=== PATIENT | female | born 1955 | race Two or more races ===

== ENCOUNTER → 2025-03-27 | Day surgery (SDC) | payer OTHER, MEDICAID ==
[~2025-03-27] VITALS: Ht 162.6 cm; Wt 77.1 kg
[~2025-03-27] MED LIST: GABA-1308 PO; INSU1INJ19 SC; KETAMINE 50mg/ML 1ml syringe ONE; LIDOCAINE 1% INJ PF 5ML AMP ONE; LISI40TA16 PO; MIDAZOLAM HCL 2MG/2ML 2ml VIAL (1mg/ml) ONE; ONDANSETRON HCL 4 MG/2 ML VIAL ONE; PROPOFOL 10 MG/ML 20 ML IV ONE; SODIUM CHLORIDE LOCK 0 ML ONE; TIRZ12.5 SC; ceFAZolin 2 GM/D5W50ml 50 ML IV ONE; fentaNYL CITRATE 100 MCG/2 ML VL ONE
[2025-03-27 09:40] VITALS: BP 149/88; PULSE 85; RESP 18; TEMP 97; O2SAT 100
== END | disposition home or self-care (01) ==
LOC: SUR 08:38
PROVIDERS: ATTEND Obstetrics & Gynecology
DX: N81.11 Cystocele, midline (principal); Z53.8 Procedure and treatment not carried out for other reasons; N39.46 Mixed incontinence; E11.9 Type 2 diabetes mellitus without complications; Z79.4 Long term (current) use of insulin; Z79.899 Other long term (current) drug therapy; Z98.890 Other specified postprocedural states
CPT/HCPCS: 82962; J0690; J2704; J2250; J2405

== ENCOUNTER 2025-05-22 07:39 | Day surgery (SDC) | payer OTHER, MEDICAID ==
[2025-05-18 14:56] LABS: Basophils # (auto) 0 10 ^3/uL (0-0.2); Eosinophils # (auto) 0.1 10 ^3/uL (0-0.8); Eosinophils % (auto) 3.1 % (0.0-7.0); Hematocrit 32.2 % (36.0-46.0); Lymphocytes # (auto) 1.7 10 ^3/uL (0.4-5.4); Lymphocytes % (auto) 36.8 % (10.0-50.0); Mean Corpuscular Hemoglobin 29.2 pg (28.0-32.0); Mean Corpuscular Hgb Conc. 34.2 g/dL (32.0-36.0); Mean Corpuscular Volume 85.3 fL (80.0-100.0); Monocytes # (auto) 0.4 10 ^3/uL (0-1.3); Monocytes % (auto) 7.7 % (0.0-12.0); Neutrophils # (auto) 2.4 10 ^3/uL (1.6-8.6); Neutrophils % (auto) 51.4 % (37.0-80.0); Nucleated Red Blood Cells % 0.1 %; Platelet Count (auto) 294 10^3/uL (140-450); Red Blood Cells 3.77 10^6/uL (4.0-5.20); Red Cell Distribution Width 15.5 % (11.8-14.3); White Blood Cell 4.7 10^3/uL (4.4-10.8)
[2025-05-18 15:06] LABS: INR 0.97 (0.9-1.15); Partial Thromboplastin Time 25.6 SEC (24.5-34.5); Prothrombin Time 10.3 sec (9.3-11.8)
[2025-05-18 15:11] LABS: Alanine Aminotransferase 13 U/L (7-40); Albumin 4.2 g/dL (3.2-4.8); Alkaline Phosphatase 97 U/L (46-116); Anion Gap 4 (5-15); Aspartate Aminotransferase 20 U/L (<34); BUN/Creatinine Ratio 18.1 (10.0-20.0); Bilirubin, Total 0.6 mg/dL (0.2-1.0); Carbon Dioxide 28 mmol/L (20-31); Chloride 111 mmol/L (98-107); Glucose 127 mg/dL (74-106); Potassium 4.7 mmol/L (3.5-5.1); Sodium 143 mmol/L (136-145); Total Protein 7.1 g/dL (5.7-8.2)
[2025-05-18 15:12] LABS: Blood Urea Nitrogen 29 mg/dL (9-23); Calcium 10.5 mg/dL (8.7-10.4)
[2025-05-18 15:46] LABS: Urine Bacteria MANY /hpf (None Seen); Urine Blood TRACE /uL (Negative); Urine Clarity Turbid (Clear); Urine Color Light-Yellow (Yellow); Urine Mucus FEW (None Seen); Urine Protein, UAD 1+ (Negative); Urine Specific Gravity 1.016 (1.001-1.035); Urine Squamous Epithelial Cell FEW /hpf (<5); Urine Urobilinogen Normal (Negative); Urine WBC 70 /HPF (0-5); Urine pH 5.5 (5.0-9.0)
[~2025-05-22] VITALS: Ht 162.6 cm; Wt 77.1 kg
[~2025-05-22 07:39] MED LIST changes: -KETAMINE 50mg/ML 1ml syringe ONE; -LIDOCAINE 1% INJ PF 5ML AMP ONE; -MIDAZOLAM HCL 2MG/2ML 2ml VIAL (1mg/ml) ONE; -ONDANSETRON HCL 4 MG/2 ML VIAL ONE; +POLYPOW85 PO; -PROPOFOL 10 MG/ML 20 ML IV ONE; +ROSU40TA81 PO; -SODIUM CHLORIDE LOCK 0 ML ONE; -ceFAZolin 2 GM/D5W50ml 50 ML IV ONE; -fentaNYL CITRATE 100 MCG/2 ML VL ONE
[2025-05-22] MEDS ORDERED: ceFAZolin 2 GM/D5W50ml 50 ML IV ONE (07:50)
[2025-05-22] MEDS ORDERED: VASOPRESSIN 20 UNIT/ML ONE (08:34)
[2025-05-22] MEDS ORDERED: CONJ ESTROGENS 0.625MG/GM VAG CRM 30GM PV ONE (08:34)
[2025-05-22] MEDS ORDERED: KETOROLAC TROMETH 30 MG/ML 1ML VIAL ONE (08:52)
[2025-05-22] MEDS ORDERED: GLYCOPYRROLATE 0.2 MG/ML 1ML VIAL ONE (08:52)
[2025-05-22] MEDS ORDERED: KETAMINE 50mg/ML 1ml syringe ONE (08:52)
[2025-05-22] MEDS ORDERED: PROPOFOL 10 MG/ML 20 ML IV ONE (08:52)
[2025-05-22] MEDS ORDERED: DexAMETHasone SOD PHOS 10MG/1ML VIAL INJ ONE (08:52)
[2025-05-22] MEDS ORDERED: LIDOCAINE 2% (LOCAL ANESTH.) PF 5ml SDV ONE (08:52)
[2025-05-22] MEDS ORDERED: fentaNYL CITRATE 100 MCG/2 ML VL ONE (08:52)
[2025-05-22] MEDS: ACETAMINOPHEN IV 1000 MG/100ML (10MG/ML) IV ONE (10:42)
[2025-05-22] MEDS: GABAPENTIN 300 MG CAP PO ONE (10:42)
[2025-05-22] MEDS: CELECOXIB 100 MG CAP PO ONE (10:42)
[2025-05-22] MEDS ORDERED: GABAPENTIN 300 MG CAP ONE (10:43)
[2025-05-22] MEDS ORDERED: CELECOXIB 100 MG CAP ONE (10:43)
[2025-05-22] MEDS ORDERED: ACETAMINOPHEN IV 100 ML IV ONE (10:43)
[2025-05-22] MEDS: BUPIVACAINE 0.25% INJ 50ML VIAL ONE (11:57)
[2025-05-22] MEDS: ceFAZolin 1GM VL ONE (11:58)
[2025-05-22] MEDS: Lidocaine/Epinephrine 1%-1:100,000 30ML VL ONE (11:58)
[2025-05-22 12:21] VITALS: PULSE 73; RESP 15; O2SAT 100
[2025-05-22] MEDS ORDERED: HYDROmorphone HCL 2 MG/ML VL/or syr IV PRN (12:30)
[2025-05-22] MEDS ORDERED: ONDANSETRON HCL 4 MG/2 ML VIAL IV PRN ×2 (12:30)
[2025-05-22] MEDS ORDERED: NALOXONE HCL 0.4 MG/ML VIAL IV PRN (12:30)
[2025-05-22] MEDS ORDERED: FLUMAZENIL 0.1 MG/ML INJ 10ML MDV IV PRN (12:30)
[2025-05-22] MEDS ORDERED: fentaNYL CITRATE 100 MCG/2 ML VL IV PRN (12:30)
[2025-05-22] MEDS ORDERED: ePHEDrine SULFATE 50 MG/ML AMP IV PRN (12:30)
[2025-05-22] MEDS ORDERED: oxyCODONE HCL 5MG TAB PO PRN (12:30)
--- NOTE | 2025-05-22 12:31 | DVHOP2 ---
Operative Report - 2 Report Details Date: 05/22/25 Preop Diagnosis: Stress incontinence, cystocele, suspicious vaginal lesion, rectocele Postop Diagnosis: same; incidental enterocele cervical colpo prolapse Surgeon: Wilber Banks Anesthesiologist: Boby ALEMAN Anesthesia: General Consent: The patient was informed of the risks and benefits of the procedure. These include but are not limited to complications of anesthesia, postoperative infection, incomplete relief of symptoms, recurrence of symptoms, damage to blood vessels, nerves and tendons, deep venous thrombosis, pulmonary embolism and possible need for repeat surgery in the future. Complications: None Estimated Blood Loss: 50 cc Findings: See anesthesia log for fluids Grade 3 cervical vaginal prolapse enterocele cystocele kinked urethra rectocele suspicious vaginal lesion Indications for Surgery: Eloina Sims postop diagnosis Name of Procedure Performed Cystocele repair urethral sling partial vaginectomy rectocele repair enterocele repair Capio colpo cervical suspension Procedure Details Procedure Details: Patient taken to the operating placed in supine position general anesthesia performed without difficulty and prepped draped sterile fashion she was found to have a grade 3 cervical vaginal prolapse grade 3 cystocele QQ urethra and rectocele with suspicious vaginal lesion mid vagina. Swartz placed clear straw- colored urine. Lone star retractor placed. Two Sreedhar placed on the dome of the cystocele and a 1 cm lateral incision was made through the vaginal mucosa was then extended inferior and superiorly and the vaginal mucosa dissected off the bladder. The Jessika 1 urethral single incision urethral sling was then placed with the appropriate tension according to the manufacture's instructions. Copiously irrigated placed a Yaneth tracts 2 x 3 graft around the urethra to promote granulation tissue inhibit erosion. Then serial 2-0 plication sutures of 2-0 Vicryl were used to reduce the cystocele. Adjacent to the vaginal incision was a suspicious dark and raised lesion which was sent separate as suspicious vaginal yeast. The risks of the vaginal mucosa was sent as vaginal mucosa". Cystoscopy performed which showed no evidence of disruption pull out her mucosa. Attention was then turned to the peritoneum 2 Sreedhar clamps were used to grasp the vaginal perineum 1 cm lateral to each other. Eleven blade was used to make a vaginal skin incision and then this was extended cephalad with Metzenbaum scissors effectively really seeing the posterior vaginal mucosa from the rectocele this was extended up to the cervix and then dissected laterally exposing the rectal pillars we then dissected laterally on patient's left to the uterosacral ligament the uterosacral notch was palpated and a Capio 2-0 Ethibond suture was placed through the uterosacral ligament 1 cm medial to the notch. To the sutures were placed in held long. At this point plication sutures to the midline and 0 2-0 Ethibond were sewn in and held long rectal exam showed no evidence of rectal rectal mucosal disruption. The Gelfoam was placed posterior to these Ethibond plication sutures and then they were tied individually the redundant vaginal mucosa was taken off with scissors the the suspension sutures were tied with excellent cervical colposuspension noted. The vaginal mucosal incision was then closed running continuous of 2-0 Vicryl copiously irrigated and placed a Premarin vaginal pack. Patient tolerated procedure well complications none patient stable guarded. She will be observed for at least 1 hour prior to discharge home. Specimen: Suspicious vaginal lesion count, vaginal mucosa Condition Good Disposition Home DK BANKS DO May 22, 2025 12:31
[2025-05-22] MEDS: HYDROmorphone HCL 2 MG/ML VL/or syr ONE (12:43)
[2025-05-22] MEDS: ONDANSETRON HCL 4 MG/2 ML VIAL ONE (13:50)
[2025-05-22] MEDS: hydrALAZINE HCL 20 MG/ML VL IV PRN (14:00)
[2025-05-22 14:33] VITALS: BP 144/51; PULSE 70; RESP 12; O2SAT 100
== END 2025-05-22 15:21 | disposition home or self-care (01) ==
LOC: SUR 07:39
PROVIDERS: ATTEND Obstetrics & Gynecology
DX: N39.3 Stress incontinence (female) (male) (principal); N81.3 Complete uterovaginal prolapse; N89.8 Other specified noninflammatory disorders of vagina; I10 Essential (primary) hypertension; E11.9 Type 2 diabetes mellitus without complications; K21.9 Gastro-esophageal reflux disease without esophagitis; E66.3 Overweight; Z68.29 Body mass index [BMI] 29.0-29.9, adult; Z79.4 Long term (current) use of insulin; Z79.84 Long term (current) use of oral hypoglycemic drugs; Z79.899 Other long term (current) drug therapy; Z90.710 Acquired absence of both cervix and uterus
CPT/HCPCS: 36415; 57106; 57265; 57283; 57288; 80053; 81001; 82962; 85025; 85610; 85730; 86850; 86900; 86901; 88305; A4315; C2631; J0360; J0690; J1100; J1171; J1885; J2003; J2405; J2704; J3010; J0131; J3490